=== PATIENT | male | born 1960 | race Caucasian/White ===

== ENCOUNTER → 2019-04-02 | Outpatient (CLI) | payer OTHER, SELFPAY ==
[2019-04-02 08:56] VITALS: BMI 37.3
== END | disposition home or self-care (01) ==
LOC: LABSPEC 14:28
PROVIDERS: Referring Provider Physician Assistant; Visit Provider Physician Assistant
DX: J02.9 Acute pharyngitis, unspecified (principal)
CPT/HCPCS: 87077; 87081

== ENCOUNTER → 2021-07-15 09:02 | Outpatient (CLI) | payer OTHER, SELFPAY ==
--- NOTE | 2021-07-15 09:09 | US_ITS ---
PROCEDURES: ULTRASOUND AORTA REASON FOR EXAM: Male, 60 years old. AAA TECHNIQUE: Ultrasound evaluation of the aorta was performed with real-time and static arce-scale imaging. COMPARISON: None. FINDINGS: There is no elongation or tortuosity of the abdominal aorta. Aorta measures: Proximal 2.4 cm. Middle 2.2 cm. Distal 5.8 cm. Aorta measure transversely: Proximal 2.4 cm. Middle 2.2 cm. Distal 6.2 cm. Right iliac artery measures: 1.4 cm. Right iliac artery measure transversely: 1.4 cm. Left iliac artery measures: 1.3 cm. Left iliac artery measure transversely: 1.3 cm. There is a demonstrated aneurysm.. US/Aorta IMPRESSION: 6.2 cm abdominal aortic aneurysm. Electronically Signed: Ryan Craft MD at 13:08 EDT Tel , Service support ,
== END ==
DX: I71.4 Abdominal aortic aneurysm, without rupture (principal)
CPT/HCPCS: 76775